=== PATIENT | female | born 1940 | race Caucasian/White ===

== ENCOUNTER 2016-09-05 15:03 | Day surgery (SDC) | payer MEDICARE ==
[2016-09-05 15:00] VITALS: BP 142/83; PULSE 58; RESP 16; O2SAT 98
[~2016-09-05 15:03] MED LIST: ALLO100T PO; ASA325 PO; CALC600T85 PO; CARV25T PO; CHOL10008 PO; CITA10TA14 PO; CLAR10T PO; CRES20T PO; FOL1 PO; METHOTREX PO; Magic Mouthwash PO; OMEG1CAP25 PO; OMEP20TA86 PO; PER5A PO; PRE5 PO; PREC PV; PROBIOTIC1 EACH PO; RESTASIS OU; ZOLEDRONIC ACID IV ONE
[2016-09-05] MEDS ORDERED: OMEP20CA11 PO (18:59)
[2016-09-05] MEDS ORDERED: VIT1TABL83 PO (18:59)
[2016-09-05] MEDS ORDERED: OMEG1CAP56 PO (18:59)
[2016-09-05] MEDS ORDERED: ASPI81TA3 PO (18:59)
[2016-09-05] MEDS ORDERED: FOLI1TAB18 PO (18:59)
[2016-09-05] MEDS ORDERED: CREST10T PO (18:59)
[2016-09-05] MEDS ORDERED: TRAM50TA2 PO (18:59)
[2016-09-05] MEDS ORDERED: FLUC100T4 PO (18:59)
[2016-09-05] MEDS ORDERED: CHOL200047 PO (18:59)
[2016-09-05] MEDS ORDERED: CITA20TA PO (18:59)
[2016-09-05] MEDS ORDERED: BIMA2.5D5 OD (18:59)
[2016-09-05] MEDS ORDERED: CARV12.52 PO (18:59)
[2016-09-05] MEDS ORDERED: LACT1CAP73 PO (18:59)
[2016-09-05] MEDS ORDERED: ZYL100 PO (18:59)
[2016-09-05] MEDS ORDERED: CALC600T12 PO (18:59)
[2016-09-05] MEDS ORDERED: PRD5T PO (19:00)
[2016-09-05] MEDS ORDERED: METH2.5T PO (19:00)
[2016-09-05] MEDS ORDERED: TOFA11TA PO (19:00)
--- NOTE | 2016-09-05 19:00 | NUR ---
Reclast infusion: IV started to left AC. Tolerated Reclast infusion without incident. IV d/c'd intact. Discharged home ambulatory in stable condition accompanied by .
== END 2016-09-05 23:59 | disposition home or self-care (01) ==
LOC: MOCO 15:03
PROVIDERS: ATTEND Internal Medicine Rheumatology
DX: M81.0 Age-related osteoporosis without current pathological fracture (principal); M06.9 Rheumatoid arthritis, unspecified; I25.10 Atherosclerotic heart disease of native coronary artery without angina pectoris; Z95.5 Presence of coronary angioplasty implant and graft; E11.9 Type 2 diabetes mellitus without complications; N18.9 Chronic kidney disease, unspecified; I12.9 Hypertensive chronic kidney disease with stage 1 through stage 4 chronic kidney disease, or unspecified chronic kidney disease; M43.10 Spondylolisthesis, site unspecified

== ENCOUNTER 2017-02-03 15:20 | Emergency (ER) | payer MEDICARE ==
[~2017-02-03] VITALS: Ht 160 cm; Wt 69.5 kg
[~2017-02-03 15:20] MED LIST changes: -ALLO100T PO; -ASA325 PO; +ASPI81TA3 PO; +BIMA2.5D5 OD; +CALC600T12 PO; -CALC600T85 PO; +CARV12.52 PO; -CARV25T PO; -CHOL10008 PO; +CHOL200047 PO; -CITA10TA14 PO; +CITA20TA PO; -CLAR10T PO; -CRES20T PO; +CREST10T PO; +FLUC100T4 PO; -FOL1 PO; +FOLI1TAB18 PO; +LACT1CAP73 PO; +METH2.5T PO; -METHOTREX PO; -Magic Mouthwash PO; -OMEG1CAP25 PO; +OMEG1CAP56 PO; +OMEP20CA11 PO; -OMEP20TA86 PO; -PER5A PO; +PRD5T PO; -PRE5 PO; -PREC PV; -PROBIOTIC1 EACH PO; -RESTASIS OU; +TOFA11TA PO; +TRAM50TA2 PO; +VIT1TABL83 PO; -ZOLEDRONIC ACID IV ONE; +ZYL100 PO
[2017-02-03 15:27] VITALS: BP 95/58; PULSE 65; RESP 18; O2SAT 96
--- NOTE | 2017-02-03 16:11 | ED.REPORT ---
HPI-General Illness Date of Service Feb 03, 2017 ED Provider: Nasim De Anda A 76 year old female with a history of rheumatoid arthritis, hypertension, rhizotomy, AR with cardiac catheterization and stents, and diabetes is referred to the ED from Urgent Care due to weakness. The pt began feeling weak four days ago. This has been accompanied by decreased appetite, intermittent nausea and occasional epistaxis that resolves spontaneously. The pt also reports an area of redness on the tip of her nose that began two days ago and left knee swelling that began four days ago. She denies headache, dysuria, diarrhea, hematochezia or vomiting. The pt has was seen by a rag sorter on 01/21/2017 in response to abnormal labs and concern for her renal function. She now has a tender, red, swollen area on her left arm where the blood was drawn. Nursing Notes Stated Complaint: WEAKNESS/SENT FROM URGENT CARE Chief Complaint: General Complaint Nursing Notes Reviewed: Yes Allergies: Coded Allergies: Sulfa (Sulfonamide Antibiotics) (Verified Allergy, Severe, FACIAL SWELLING , 05/02/13) ciprofloxacin (Verified Adverse Reaction, Severe, N&V, 05/02/13) hydrocodone (Verified Adverse Reaction, Severe, TREMULOUS, 05/02/13) meperidine HCl (Verified Adverse Reaction, Severe, N&V, 05/02/13) promethazine HCl (Verified Adverse Reaction, Severe, CONFUSION, 05/02/13) Scheduled Allopurinol (Allopurinol) 100 Mg Tablet 100 MG PO DAILY Aspirin Chew (Aspirin Chew) 81 Mg Chew 81 MG PO DAILY Bimatoprost (Lumigan) 45 Drop/2.5 Ml Ophsoln 45 DROP OD HS Carvedilol (Carvedilol) 12.5 Mg Tablet 12.5 MG PO BID Cholecalciferol (Vitamin D3) (Vitamin D3) 2,000 Unit Capsule 2,000 UNIT PO DAILY Citalopram Hydrobromide (Celexa) 20 Mg Tablet 20 MG PO DAILY Doxycycline Monohyd (Doxycycline Monohyd) 100 Mg Capsule 100 MG PO BID Fluconazole (Fluconazole) 100 Mg Tablet 100 MG PO DAILY Folic Acid (Folic Acid) 1 Mg Tablet 2 TAB PO DAILY Lactobacillus Combo No.11 (Probiotic) 1 Each Cap.sprink 2 EACH PO DAILY Methotrexate Sodium (Methotrexate) 2.5 Mg Tablet 8 TAB PO WEEKLY Mupirocin Nasal Oint (Bactroban Nasal Oint) 1 Gm Oint...g. 1 APPLIC NASAL TID x5 days [place]-3 Fatty Acids/Fish Oil ([place] 3 1,000 mg Softgel) 1 Each Capsule 1 EACH PO DAILY Omeprazole (Omeprazole) 20 Mg Capsule.dr 20 MG PO DAILY Prednisone (PredniSONE) 5 Mg Tab 5 MG PO DAILY Rosuvastatin Calcium (Crestor) 10 Mg Tablet 10 MG PO DAILY Tofacitinib Citrate (Xeljanz Xr) 11 Mg Tab.er.24h 11 MG PO DAILY Vit B Comp/C/FA/Iron/Vit E (Vitamin B Complex Tablet) 1 Each Tablet 1 EACH PO DAILY Scheduled PRN Tramadol (Tramadol) 50 Mg Tablet 50 MG PO BID PRN PRN For Pain Miscellaneous Medications Calcium Carbonate (Calcium) 600 Mg Tablet 600 MG PO General Time Seen by MD: 16:07 Chief Complaint Weakness Hx Obtained From: Patient, Spouse Arrived By: Walk-in Sudden in Onset?: No Onset Occurred: 4 days ago Symptom Duration: Since onset Recent Healthcare: Recent doctor visit Similar Sx Previous: No Past Medical History Past Medical History RA gout AR mild tricusp regurge pneumonia osteopenia UTI renal insufficiency with hemodialysis diabetes depression Reports: Hypertension Reports: Depression Past Surgical History cardiac catheter with stents rhizotomy Reports: Appendectomy, Cholecystectomy Smoking History Unknown if Ever Smoker Social History Drug Use: Denies drug use Other Social History: Good social support, Ambulatory Status Independent Review of Systems area of redness on nose swollen area of redness on arm left knee swelling decreased appetite urinary incontinence Full Review of Systems Constitutional: Reports: Weakness - generalized Ears / Nose / Throat: Reports: Nose bleeding GI: Reports: Nausea, Denies: Bloody/tarry stool, Diarrhea, Hematemesis, Vomiting Female: Denies: Dysuria Neurologic: Denies: Headache Complete sys rev & neg: except as marked. Physical Exam Vital Signs Vital Signs Date Time Temp Pulse Resp B/P Pulse Ox O2 Delivery O2 Flow Rate FiO2 02/03/17 19:30 36.8 76 19 113/47 93 Room Air 02/03/17 16:59 63 23 124/60 97 Room Air 02/03/17 15:27 37.4 65 18 95/58 96 Room Air Initial VS: Reviewed General/Constitutional: Awake, Alert Head / Eyes: Normocephalic, PERRL, EOMI ENT: Airway patent, Mucous membranes moist Neck: Supple, Full range of motion Respiratory / Chest: Breath sounds NL, Breath sounds = bilat, No respiratory distress Cardiovascular: Heart rate NL, Regular rhythm, Heart sounds NL Abdomen: Soft, Non-tender Back: Atraumatic, Full range of motion Upper Extremities Upper Extremity / MS: Full range of motion, Neurologic intact, Vascular intact Lower Extremity / Pelvis / MS: Full range of motion, Neurologic intact, Vascular intact Skin: No rash, Warm, Dry pale crusting, ulcerated lesion on the tip of the left nares superficial thrombophlebitis of the left forearm Neurologic: Oriented X3, Speech NL, No motor deficits, No sensory deficits Psychiatric: Affect NL, Mood NL Interpretation & Diagnostics Lab Results Interpretation Result Diagram: 02/03/17 1639 02/03/17 1639 Test 02/03/17 16:39 02/03/17 16:55 02/03/17 18:13 White Blood Count 6.9th/mm3 (3.8-10.1) Red Blood Count 2.53mil/mm3 (3.90-5.20) Hemoglobin 8.7g/dL (12.0-15.6) Hematocrit 27.3% (35.0-46.0) Mean Corpuscular Volume 107.9fL (81-100) Mean Corpuscular Hemoglobin 34.4pg (27.0-35.0) Mean Corpuscular Hemoglobin Concent 31.9% (32.0-37.0) Red Cell Distribution Width 15.4% (12.3-15.4) Platelet Count 163bil/L (150-400) Neutrophils (%) (Auto) 87.4% (40-74) Lymphocytes (%) (Auto) 7.0% (14-46) Monocytes (%) (Auto) 3.8% (4-12) Eosinophils (%) (Auto) 0.9% (0-5) Basophils (%) (Auto) 0% (0-3) Sodium Level 133mEq/L (134-144) Potassium Level 4.0mEq/L (3.5-5.2) Chloride Level 91mEq/L (97-108) Carbon Dioxide Level 26mmol/L (18-29) Blood Urea Nitrogen 27mg/dL (8-27) Creatinine 1.65mg/dL (0.57-1.00) Estimat Glomerular Filtration Rate 43mL/min (>59) Glucose Level 151mg/dL (60-99) Calcium Level 9.5mg/dL (8.5-10.1) Magnesium Level 1.9mg/dL (1.6-2.6) Total Bilirubin 0.7mg/dL (0.0-1.2) Aspartate Amino Transf (AST/SGOT) 20U/L (0-50) Alanine Aminotransferase (ALT/SGPT) 10U/L (0-32) Alkaline Phosphatase 49U/L (25-165) Troponin T < 0.010ug/L (0.0-0.011) Total Protein 6.5g/dL (6.4-8.4) Albumin 3.9g/dL (3.4-5.0) Procalcitonin 0.10ng/mL (0.00-0.08) Lactic Acid Level 1.5mmol/L (0.4-2.0) Urine Color Yellow (YELLOW) Urine Appearance Clear (CLEAR,HAZY) Urine pH 6.0 (5.0-8.0) Urine Specific Dorris 1.010 (1.003-1.035) Urine Protein 30mg/dL (NEG,TRACE) Urine Glucose (UA) Negativemg/dL (NEGATIVE) Urine Ketones Negativemg/dL (NEGATIVE) Urine Occult Blood Trace (NEGATIVE) Urine Nitrite Negative (NEGATIVE) Urine Bilirubin Negative (NEGATIVE) Urine Urobilinogen Normalmg/dL (NORMAL) Urine Leukocyte Esterase Negative (NEGATIVE) Urine RBC 0-2/hpf (0-2) Urine WBC 0-5/hpf (0-5) Urine Epithelial Cells None/hpf (NONE-MOD) Urine Crystals None seen (NONE SEEN) Urine Bacteria None/hpf (NONE-FEW) Urine Hyaline Casts None/lpf (NONE) Urine Granular Casts None seen (NONE SEEN) Urine Waxy Casts None seen (NONE SEEN) Urine Red Blood Cell Casts None seen (NONE SEEN) Urine White Blood Cell Casts None seen (NONE SEEN) Urine Mucus None seen (None Seen) Urine Trichomonas None seen (NONE SEEN) Urine Yeast None (NONE SEEN) Urinalysis Comment None Urine Culture Reflexed Not indicated ECG Interpretation ECG Interpretation: normal sinus rhythm with a history of 64 nonspecific intraventricular conduction delay Time: 17:10 Interpreted by: ED physician X-Ray Chest Interpretation Chest Xray Interpretation: IMPRESSION: No radiographic evidence of acute cardiopulmonary pathology. Dictated by: Jb Caballero M.D. on 02/03/2017 at 17:20 Approved by: Jb Caballero M.D. on 02/03/2017 at 17:21 Interpretation / Wet Read by: Interpret - Radiologist Re-Eval/Medical Decision Med Decision/Clinical Course Generalized weakness without any particular acute findings. The patient does have an ulceration to the tip of her left malar with some superimposed mild nasal cellulitis. Full range of motion of the extremities, neurologically intact, lungs abdomen unremarkable no reports of gastrointestinal bleeding. Patient does have some chronic kidney disease with normal electrolytes as well as a moderate anemia which is not in any transfusional range. Patient is feeling better after some IV fluids and is agreeable to discharge and close follow-up. Return and follow-up precautions given. Source of Hx: Old records Time of Eval: 18:28 Patient Status: Condition improved Re-Evaluation/Progress Note: Pt rechecked, who feels better and is comfortable going home. The diagnosis and plan for discharge are discussed. The pt understands and agrees with the plan. All questions are addressed at this time. Counseled Regarding: Diagnosis, Lab results, Need for follow-up, When/why to return to ED Discharge & Departure Primary Impression: Weakness Additional Impression: Cellulitis of nasal tip Disposition: Home Discharge Condition All VS Reviewed: Yes Condition: Stable Patient Instructions: Weakness (ED) Additional Instructions: Thank you for entrusting us with your care. Your evaluation in the Emergency Department was reassuring. Use Bactroban and doxycycline for your nose Call your primary care physician to arrange a follow up appointment in the next several days. Return to the emergency department if you develop any new or worsening symptoms. Referrals: Kayleen Zhang (PCP) Scribe Attestation Portions of this note were transcribed by Malik Thomas. I, Dr. De Anda personally performed the history, physical exam and medical decision-making; I reviewed and confirmed the accuracy of the information in the transcribed note. copies to: Kayleen Zhang Timothy Linnea HA Feb 03, 2017 16:11 MALIK THOMAS Feb 03, 2017 16:34
[2017-02-03] MEDS ORDERED: 0.9% Sodium Chloride 1,000 ML IV ONE (16:34)
[2017-02-03 16:44] LABS: BASOPHILS % (AUTO) 0 % (0-3); EOSINOPHILS % (AUTO) 0.9 % (0-5); MONOCYTES % (AUTO) 3.8 % (4-12); Mean Corpuscular Hemoglobin 34.4 pg (27.0-35.0); Mean Corpuscular Volume 107.9 fL (81-100); NEUTROPHILS % (AUTO) 87.4 % (40-74); Platelet Count 163 bil/L (150-400)
[2017-02-03 16:59] VITALS: BP 124/60; PULSE 63; RESP 23; O2SAT 97
[2017-02-03 17:03] LABS: Magnesium 1.9 mg/dL (1.6-2.6)
[2017-02-03 17:12] LABS: TROPONIN T < 0.010 ug/L (0.0-0.011)
--- NOTE | 2017-02-03 17:22 | DRSVH ---
PROCEDURE: X-RAY CHEST ONE VIEW, PORTABLE ([id number]) INDICATIONS: WEAKNESS TECHNIQUE: One view of the chest was acquired. COMPARISON: [facility], CR, XR CHEST 1VW (PORTABLE), 07/20/2015, 14:41. [facility], CR, CHEST 1VW (PORTABLE), 04/17/2012, 17:55. [facility], CR, CHEST 1VW (PORTABLE ), 04/13/2012, 22:52. FINDINGS: Surgical changes and devices: None. Lungs and pleura: No pleural effusions or pneumothorax. Lungs are clear. Mediastinum: Mediastinal contours appear normal. Heart size is normal. Bones and chest wall: No suspicious bony lesions. Overlying soft tissues appear unremarkable. IMPRESSION: No radiographic evidence of acute cardiopulmonary pathology. Dictated by: Jb Caballero M.D. on 02/03/2017 at 17:20 Approved by: Jb Caballero M.D. on 02/03/2017 at 17:21
[2017-02-03] MEDS ORDERED: 0.9% Sodium Chloride 500 ML IV ONE (18:00)
[2017-02-03 18:30] LABS: APPEARANCE,URINE CLEAR (CLEAR,HAZY); COLOR,URINE YELLOW (YELLOW); OCCULT BLOOD,URINE TRACE (NEGATIVE); UROBILINOGEN,URINE NORMAL (NORMAL)
[2017-02-03] MEDS ORDERED: MUPI1OIN5 NASAL (18:51)
[2017-02-03] MEDS ORDERED: DOXY100C43 PO (18:51)
[2017-02-03 19:30] VITALS: BP 113/47; PULSE 76; RESP 19; O2SAT 93
== END 2017-02-03 19:25 | disposition home or self-care (01) ==
LOC: SED 15:20
DX: R53.1 Weakness (principal); J34.0 Abscess, furuncle and carbuncle of nose; R11.0 Nausea; R04.0 Epistaxis; M25.462 Effusion, left knee; M79.89 Other specified soft tissue disorders; I11.9 Hypertensive heart disease without heart failure; E11.59 Type 2 diabetes mellitus with other circulatory complications; I25.2 Old myocardial infarction; M06.9 Rheumatoid arthritis, unspecified; F32.9 Major depressive disorder, single episode, unspecified; Z87.01 Personal history of pneumonia (recurrent); Z87.440 Personal history of urinary (tract) infections; Z95.5 Presence of coronary angioplasty implant and graft; Z90.49 Acquired absence of other specified parts of digestive tract; Z98.890 Other specified postprocedural states; Z79.82 Long term (current) use of aspirin; Z88.1 Allergy status to other antibiotic agents; Z88.2 Allergy status to sulfonamides; Z88.5 Allergy status to narcotic agent; Z88.8 Allergy status to other drugs, medicaments and biological substances
CPT/HCPCS: 36415; 71010; 80053; 81000; 83605; 83735; 84145; 84484; 85025; 86850; 87040; 93005; 96360; 99285; J7030